=== PATIENT | male | born 1990 | race Caucasian/White ===

== ENCOUNTER 2021-09-29 11:41 | Emergency (ER) | payer OTHER ==
[~2021-09-29] VITALS: Ht 188 cm; Wt 81.6 kg
== END 2021-09-29 15:35 | disposition home or self-care (01) ==
LOC: ER 11:41
DX: S09.90XA Unspecified injury of head, initial encounter (principal); E86.0 Dehydration; W16.112A Fall into natural body of water striking water surface causing other injury, initial encounter; Y93.9 Activity, unspecified; Y92.832 Beach as the place of occurrence of the external cause; F19.10 Other psychoactive substance abuse, uncomplicated